=== PATIENT | female | born 1985 | race Caucasian/White ===

== ENCOUNTER 2016-07-20 14:19 | Emergency (ER) | payer BC ==
[~2016-07-20] VITALS: Ht 162.6 cm; Wt 101.4 kg
[~2016-07-20 14:19] MED LIST: FLEXERIL 1010 MG/TAB PO; IBU800 M1 PO; INDERAL60 MG PO; LEXAPRO 10MG10 MG PO; LOPRESSOR100 MG PO; MOBIC 7.5MG7.5 MG PO; MOTRIN 600600 MG/TAB PO; NITROSTAT0.4 MG/TAB SL; NORCO 325 MG-51 TAB PO; ULTRAM 50MG TAB50 MG PO
[2016-07-20 14:21] VITALS: BP 126/97; TEMP 99.1
[2016-07-20] MEDS ORDERED: NORCO 325 MG-51 TAB PO (15:40)
[2016-07-20 15:57] VITALS: PULSE 86
== END 2016-07-20 15:57 | disposition home or self-care (01) ==
LOC: COL.ER 14:19
DX: S93.402A Sprain of unspecified ligament of left ankle, initial encounter (principal); X50.1XXA Overexertion from prolonged static or awkward postures, initial encounter
CPT/HCPCS: J1170; J2405; J2550

== ENCOUNTER → 2016-09-16 | Outpatient (REF) ==
[~2016-09-16] MED LIST changes: +ASPIRIN 81M81 MG/TA2 PO; +BELSOMRA15 MG PO; +CARAFATE 1GM1 G PO; +DIFLUCAN150 MG PO; +EFFEXOR 75M75 MG/TAB PO; +MACROBID 1100 MG/CAP PO; +NITROSTAT0.3 MG SL; +PROTONIX 40MG T40 MG PO; +TOPAMAX50 MG PO; +VOLTAREN 75 DR75 MG PO
== END ==
LOC: WSOH 11:38
DX: Z02.1 Encounter for pre-employment examination (principal)

== ENCOUNTER → 2016-09-19 | Outpatient (REF) | LOC: WSOH 14:57 | DX: Z02.1 Encounter for pre-employment examination (principal) ==

== ENCOUNTER → 2016-09-22 | Outpatient (REF) | LOC: WSOH 15:01 | DX: Z23 Encounter for immunization (principal) ==

== ENCOUNTER → 2016-09-26 | Outpatient (REF) | LOC: WSOH 15:36 | DX: Z02.89 Encounter for other administrative examinations (principal) ==

== ENCOUNTER 2016-10-12 08:47 | Emergency (ER) | payer BC ==
[~2016-10-12] VITALS: Ht 162.6 cm; Wt 101.8 kg
[~2016-10-12 08:47] MED LIST changes: -ASPIRIN 81M81 MG/TA2 PO; -BELSOMRA15 MG PO; -CARAFATE 1GM1 G PO; -DIFLUCAN150 MG PO; -EFFEXOR 75M75 MG/TAB PO; -MACROBID 1100 MG/CAP PO; -NITROSTAT0.3 MG SL; -PROTONIX 40MG T40 MG PO; -TOPAMAX50 MG PO; -VOLTAREN 75 DR75 MG PO
[2016-10-12 08:49] VITALS: BP 138/86; TEMP 97.6
[2016-10-12] MEDS ORDERED: BELSOMRA15 MG PO (09:11)
[2016-10-12] MEDS ORDERED: INDERAL60 MG PO (09:11)
[2016-10-12 09:35] LABS: BASO % 0.6 % (0.0-2.0); EOS # 0.1 (0.0-0.7); EOS % 1.5 % (0-4.0); GRAN # 2.6 (1.4-6.5); GRAN % 50.8 % (42.2-75.2); HEMATOCRIT 37.2 % (37.0-47.0); HEMOGLOBIN 12.8 g/dl (12.5-16.0); LYMPH # 2.1 (1.2-3.4); LYMPH % 40.9 % (20.0-51.0); MEAN CELL VOLUME 87 fl (80.0-100.0); MEAN CORPUSCULAR HEMOGLOBIN 30 pg (27.0-31.0); MEAN CORPUSCULAR HGB CONC 34 g/dl (33.0-37.0); MEAN PLATELET VOLUME 9.2 fl (7.4-10.4); MONO # 0.3 (0.1-0.6); PLATELET COUNT 401 K/mm3 (130-400); RED BLOOD COUNT 4.29 M/mm3 (4.10-5.30); REDCELL DISTRIBUTION WIDTH-CV 12.5 % (11.5-14.5); WHITE BLOOD COUNT 5.2 K/mm3 (4.8-10.8)
[2016-10-12 09:37] LABS: PH 5 (5-8); URINE APPEARANCE Hazy; URINE BACTERIA Rare /hpf; URINE BILIRUBIN Negative (NEGATIVE); URINE BLOOD 1+ (NEGATIVE); URINE COLOR Yellow; URINE GLUCOSE Negative (NEGATIVE); URINE KETONE Negative (NEGATIVE); URINE UROBILINOGEN Negative (NEGATIVE)
[2016-10-12 09:41] LABS: ADJUSTED CALCIUM 8.9 mg/dL (8.4-10.2); ALBUMIN 4.1 gm/dL (3.5-5.0); BILIRUBIN,TOTAL 0.7 mg/dL (0.0-1.0); C-REACTIVE PROTEIN 0.8 mg/dL (0.0-0.9); CREATININE, serum 0.72 mg/dL (0.52-1.25); POTASSIUM 3.8 mmol/L (3.4-5.0); TOTAL PROTEIN 8.1 gm/dL (6.4-8.2)
[2016-10-12] MEDS ORDERED: MACROBID 1100 MG/CAP PO (10:48)
[2016-10-12] MEDS ORDERED: DIFLUCAN150 MG PO (11:21)
[2016-10-12 11:29] VITALS: PULSE 84
== END 2016-10-12 11:31 | disposition home or self-care (01) ==
LOC: COL.ER 08:47
PROVIDERS: Physician Assistant
DX: R10.31 Right lower quadrant pain (principal); N39.0 Urinary tract infection, site not specified; R19.7 Diarrhea, unspecified
CPT/HCPCS: J1170; J2550; J7030; Q9967

== ENCOUNTER 2016-10-17 14:04 | Emergency (ER) | payer BC ==
[~2016-10-17] VITALS: Ht 162.6 cm; Wt 101.8 kg
[~2016-10-17 14:04] MED LIST changes: +BELSOMRA15 MG PO; +DIFLUCAN150 MG PO; +MACROBID 1100 MG/CAP PO
[2016-10-17 14:05] VITALS: TEMP 98.9
[2016-10-17 14:39] LABS: BASO % 0.8 % (0.0-2.0); EOS # 0.1 (0.0-0.7); GRAN # 2.6 (1.4-6.5); GRAN % 49.6 % (42.2-75.2); HEMOGLOBIN 13.1 g/dl (12.5-16.0); LYMPH # 2.3 (1.2-3.4); LYMPH % 44.4 % (20.0-51.0); MEAN CELL VOLUME 87 fl (80.0-100.0); MEAN CORPUSCULAR HEMOGLOBIN 30 pg (27.0-31.0); MEAN CORPUSCULAR HGB CONC 35 g/dl (33.0-37.0); MEAN PLATELET VOLUME 9.2 fl (7.4-10.4); MONO # 0.2 (0.1-0.6); PLATELET COUNT 387 K/mm3 (130-400); RED BLOOD COUNT 4.35 M/mm3 (4.10-5.30); REDCELL DISTRIBUTION WIDTH-CV 12.7 % (11.5-14.5); WHITE BLOOD COUNT 5.2 K/mm3 (4.8-10.8)
[2016-10-17 14:56] LABS: ADJUSTED CALCIUM 8.8 mg/dL (8.4-10.2); ALANINE AMINOTRANSFERASE 23 U/L (9-52); ALBUMIN 4.6 gm/dL (3.5-5.0); ALKALINE PHOSPHATASE 93 U/L (50-136); ANION GAP 10 mmol/L (7-16); BILIRUBIN,TOTAL 0.8 mg/dL (0.0-1.0); BLOOD UREA NITROGEN 8 mg/dL (7-17); CALCIUM 9.3 mg/dL (8.4-10.2); CARBON DIOXIDE 25 mmol/L (22-30); CHLORIDE 103 mmol/L (98-107); CREATININE, serum 0.76 mg/dL (0.52-1.25); GLUCOSE 89 mg/dL (74-106); POTASSIUM 3.8 mmol/L (3.4-5.0); SODIUM 137 mmol/L (137-145); TOTAL PROTEIN 8.5 gm/dL (6.4-8.2)
[2016-10-17 15:09] LABS: TROPONIN-I < 0.012 ng/mL (0.000-0.034)
[2016-10-17 15:12] LABS: PROLACTIN 28.5 ng/mL (3.0-18.6)
[2016-10-17 16:12] LABS: PH 5 (5-8); URINE APPEARANCE Hazy; URINE BACTERIA Rare /hpf; URINE BILIRUBIN Negative (NEGATIVE); URINE BLOOD Negative (NEGATIVE); URINE COLOR Yellow; URINE GLUCOSE Negative (NEGATIVE); URINE KETONE Negative (NEGATIVE); URINE UROBILINOGEN Negative (NEGATIVE); URINE WBC 0-2 /hpf
[2016-10-17 17:14] VITALS: BP 115/78; PULSE 88
== END 2016-10-17 16:40 | disposition home or self-care (01) ==
LOC: COL.ER 14:04
PROVIDERS: Physician Assistant
DX: R07.9 Chest pain, unspecified (principal); F41.9 Anxiety disorder, unspecified; R79.89 Other specified abnormal findings of blood chemistry; I10 Essential (primary) hypertension; N39.0 Urinary tract infection, site not specified
CPT/HCPCS: J2060

== ENCOUNTER 2016-12-02 07:58 | Emergency (ER) | payer BC ==
[~2016-12-02] VITALS: Ht 162.6 cm; Wt 101.4 kg
[2016-12-02 08:00] VITALS: TEMP 98.2
[2016-12-02] MEDS ORDERED: EFFEXOR 75M75 MG/TAB PO (08:06)
[2016-12-02] MEDS ORDERED: NORCO 325 MG-51 TAB PO (08:42)
[2016-12-02 09:31] VITALS: BP 107/70; PULSE 83
== END 2016-12-02 09:34 | disposition home or self-care (01) ==
LOC: COL.ER 07:58
DX: F41.9 Anxiety disorder, unspecified (principal); T43.215A Adverse effect of selective serotonin and norepinephrine reuptake inhibitors, initial encounter

== ENCOUNTER 2016-12-18 14:23 | Outpatient (RCR) | payer OTHER ==
[~2016-12-18 14:23] MED LIST changes: +EFFEXOR 75M75 MG/TAB PO
[2017-01-11] MEDS ORDERED: TOPAMAX50 MG PO (01:14)
[2017-02-06] MEDS ORDERED: NITROSTAT0.3 MG SL (20:20)
[2017-02-06] MEDS ORDERED: VOLTAREN 75 DR75 MG PO (22:02)
== END 2017-03-04 ==
LOC: WSOH
DX: S00.93XA Contusion of unspecified part of head, initial encounter (principal); M54.5 Low back pain; W08.XXXA Fall from other furniture, initial encounter; Y99.0 Civilian activity done for income or pay

== ENCOUNTER 2017-01-10 23:48 | Emergency (ER) | payer OTHER ==
[~2017-01-10] VITALS: Ht 162.6 cm; Wt 100.9 kg
[2017-01-10 23:50] VITALS: TEMP 97.8
[2017-01-11 00:25] LABS: BASO % 0.4 % (0.0-2.0); EOS # 0.1 (0.0-0.7); EOS % 1.3 % (0-4.0); GRAN # 2.6 (1.4-6.5); GRAN % 47.4 % (42.2-75.2); HEMATOCRIT 36.1 % (37.0-47.0); HEMOGLOBIN 12.2 g/dl (12.5-16.0); LYMPH # 2.5 (1.2-3.4); LYMPH % 45.4 % (20.0-51.0); MEAN CELL VOLUME 88 fl (80.0-100.0); MEAN CORPUSCULAR HEMOGLOBIN 30 pg (27.0-31.0); MEAN CORPUSCULAR HGB CONC 34 g/dl (33.0-37.0); MEAN PLATELET VOLUME 8.7 fl (7.4-10.4); MONO # 0.3 (0.1-0.6); MONO % 5.3 % (1.7-9.3); PLATELET COUNT 334 K/mm3 (130-400); RED BLOOD COUNT 4.12 M/mm3 (4.10-5.30); REDCELL DISTRIBUTION WIDTH-CV 12.4 % (11.5-14.5); WHITE BLOOD COUNT 5.5 K/mm3 (4.8-10.8)
[2017-01-11 00:40] LABS: ADJUSTED CALCIUM 8.8 mg/dL (8.4-10.2); ALANINE AMINOTRANSFERASE 19 U/L (9-52); ALKALINE PHOSPHATASE 79 U/L (50-136); ANION GAP 10 mmol/L (7-16); BILIRUBIN,TOTAL 0.5 mg/dL (0.0-1.0); BLOOD UREA NITROGEN 13 mg/dL (7-17); CALCIUM 8.8 mg/dL (8.4-10.2); CARBON DIOXIDE 25 mmol/L (22-30); CHLORIDE 104 mmol/L (98-107); CREATININE, serum 0.76 mg/dL (0.52-1.25); GLUCOSE 91 mg/dL (74-106); POTASSIUM 3.9 mmol/L (3.4-5.0); SODIUM 139 mmol/L (137-145); TOTAL PROTEIN 7.6 gm/dL (6.4-8.2)
[2017-01-11 00:53] LABS: TROPONIN-I < 0.012 ng/mL (0.000-0.034)
[2017-01-11] MEDS ORDERED: TOPAMAX50 MG PO (01:14)
[2017-01-11 01:24] VITALS: BP 113/71; PULSE 81
== END 2017-01-11 01:24 | disposition home or self-care (01) ==
LOC: COL.ER 23:48
PROVIDERS: Family Medicine
DX: G40.909 Epilepsy, unspecified, not intractable, without status epilepticus (principal); S63.502A Unspecified sprain of left wrist, initial encounter; W19.XXXA Unspecified fall, initial encounter; T50.996A Underdosing of other drugs, medicaments and biological substances, initial encounter; Z91.128 Patient's intentional underdosing of medication regimen for other reason; R55 Syncope and collapse; R07.9 Chest pain, unspecified

== ENCOUNTER 2017-02-06 20:14 | Emergency (ER) | payer OTHER ==
[~2017-02-06] VITALS: Ht 162.6 cm; Wt 98.2 kg
[~2017-02-06 20:14] MED LIST changes: +TOPAMAX50 MG PO
[2017-02-06 20:16] VITALS: TEMP 99.4
[2017-02-06] MEDS ORDERED: NITROSTAT0.3 MG SL (20:20)
[2017-02-06 21:03] LABS: BASO % 0.3 % (0.0-2.0); EOS # 0.1 (0.0-0.7); EOS % 0.8 % (0-4.0); GRAN # 3.4 (1.4-6.5); GRAN % 53.9 % (42.2-75.2); HEMOGLOBIN 12.3 g/dl (12.5-16.0); LYMPH # 2.4 (1.2-3.4); LYMPH % 38.6 % (20.0-51.0); MEAN CELL VOLUME 86 fl (80.0-100.0); MEAN CORPUSCULAR HEMOGLOBIN 30 pg (27.0-31.0); MEAN CORPUSCULAR HGB CONC 35 g/dl (33.0-37.0); MEAN PLATELET VOLUME 8.9 fl (7.4-10.4); MONO # 0.4 (0.1-0.6); MONO % 6.1 % (1.7-9.3); PLATELET COUNT 355 K/mm3 (130-400); REDCELL DISTRIBUTION WIDTH-CV 12.3 % (11.5-14.5); WHITE BLOOD COUNT 6.3 K/mm3 (4.8-10.8)
[2017-02-06 21:05] LABS: HEMATOCRIT 35.1 % (37.0-47.0)
[2017-02-06 21:15] LABS: ADJUSTED CALCIUM 8.7 mg/dL (8.4-10.2); ALANINE AMINOTRANSFERASE 25 U/L (9-52); ALBUMIN 4.5 gm/dL (3.5-5.0); ALKALINE PHOSPHATASE 100 U/L (50-136); ANION GAP 11 mmol/L (7-16); BILIRUBIN,TOTAL 0.7 mg/dL (0.0-1.0); BLOOD UREA NITROGEN 9 mg/dL (7-17); CALCIUM 9.1 mg/dL (8.4-10.2); CARBON DIOXIDE 23 mmol/L (22-30); CHLORIDE 103 mmol/L (98-107); CREATININE, serum 0.72 mg/dL (0.52-1.25); GLUCOSE 92 mg/dL (74-106); POTASSIUM 3.5 mmol/L (3.4-5.0); SODIUM 137 mmol/L (137-145); TOTAL PROTEIN 8.3 gm/dL (6.4-8.2)
[2017-02-06 21:34] LABS: TROPONIN-I < 0.012 ng/mL (0.000-0.034)
[2017-02-06] MEDS ORDERED: VOLTAREN 75 DR75 MG PO (22:02)
[2017-02-06 22:10] LABS: INR 1.1 (0.8-3.0); PROTHROMBIN TIME 12.3 SECONDS (9.7-12.8)
[2017-02-06 22:23] LABS: PROLACTIN 33.1 ng/mL (3.0-18.6)
[2017-02-06 22:33] VITALS: BP 111/74; PULSE 99
== END 2017-02-06 22:40 | disposition home or self-care (01) ==
LOC: COL.ER 20:14
PROVIDERS: Emergency Medicine
DX: R55 Syncope and collapse (principal); R07.9 Chest pain, unspecified; R42 Dizziness and giddiness
CPT/HCPCS: J1885; J2765; J3010; J7030

== ENCOUNTER 2017-03-31 09:30 | Emergency (ER) | payer OTHER ==
[~2017-03-31] VITALS: Ht 162.6 cm; Wt 102.0 kg
[~2017-03-31 09:30] MED LIST changes: +NITROSTAT0.3 MG SL; +VOLTAREN 75 DR75 MG PO
[2017-03-31 09:34] VITALS: TEMP 97.9
[2017-03-31] MEDS ORDERED: ASPIRIN 81M81 MG/TA2 PO (09:52)
[2017-03-31 10:39] LABS: BASO % 0.2 % (0.0-2.0); EOS # 0.1 (0.0-0.7); EOS % 1.5 % (0-4.0); GRAN % 49.5 % (42.2-75.2); HEMOGLOBIN 12.1 g/dl (12.5-16.0); LYMPH # 1.8 (1.2-3.4); LYMPH % 43.2 % (20.0-51.0); MEAN CELL VOLUME 88 fl (80.0-100.0); MEAN CORPUSCULAR HEMOGLOBIN 30 pg (27.0-31.0); MEAN CORPUSCULAR HGB CONC 35 g/dl (33.0-37.0); MEAN PLATELET VOLUME 8.7 fl (7.4-10.4); MONO # 0.2 (0.1-0.6); MONO % 5.4 % (1.7-9.3); PLATELET COUNT 326 K/mm3 (130-400); RED BLOOD COUNT 4.01 M/mm3 (4.10-5.30); REDCELL DISTRIBUTION WIDTH-CV 12.7 % (11.5-14.5); WHITE BLOOD COUNT 4.1 K/mm3 (4.8-10.8)
[2017-03-31 10:48] LABS: ADJUSTED CALCIUM 8.9 mg/dL (8.4-10.2); ALANINE AMINOTRANSFERASE 30 U/L (9-52); ALBUMIN 3.9 gm/dL (3.5-5.0); ALKALINE PHOSPHATASE 86 U/L (50-136); ANION GAP 9 mmol/L (7-16); BILIRUBIN,TOTAL 0.7 mg/dL (0.0-1.0); BLOOD UREA NITROGEN 8 mg/dL (7-17); CALCIUM 8.8 mg/dL (8.4-10.2); CARBON DIOXIDE 25 mmol/L (22-30); CHLORIDE 105 mmol/L (98-107); CREATININE, serum 0.64 mg/dL (0.52-1.25); GLUCOSE 89 mg/dL (74-106); LIPASE 35 U/L (23-300); POTASSIUM 3.5 mmol/L (3.4-5.0); SODIUM 139 mmol/L (137-145); TOTAL PROTEIN 7.5 gm/dL (6.4-8.2)
[2017-03-31 10:56] LABS: HEMATOCRIT 35.1 % (37.0-47.0)
[2017-03-31 11:01] LABS: TROPONIN-I < 0.012 ng/mL (0.000-0.034)
[2017-03-31] MEDS ORDERED: PROTONIX 40MG T40 MG PO (12:18)
[2017-03-31] MEDS ORDERED: CARAFATE 1GM1 G PO (12:18)
[2017-03-31 12:34] VITALS: BP 111/74; PULSE 99
== END 2017-03-31 12:35 | disposition home or self-care (01) ==
LOC: COL.ER 09:30
PROVIDERS: Emergency Medicine
DX: R10.13 Epigastric pain (principal); F41.9 Anxiety disorder, unspecified; R10.12 Left upper quadrant pain; Z79.82 Long term (current) use of aspirin
CPT/HCPCS: J1885; J2060; J7030

== ENCOUNTER 2017-05-30 05:07 | Emergency (ER) | payer OTHER ==
[~2017-05-30] VITALS: Ht 162.6 cm; Wt 100.0 kg
[~2017-05-30 05:07] MED LIST changes: +ASPIRIN 81M81 MG/TA2 PO; +CARAFATE 1GM1 G PO; +PROTONIX 40MG T40 MG PO
[2017-05-30 05:11] VITALS: TEMP 98.1
[2017-05-30 06:09] LABS: ALANINE AMINOTRANSFERASE 20 U/L (9-52); ALBUMIN 4.1 gm/dL (3.5-5.0); ALKALINE PHOSPHATASE 88 U/L (50-136); ANION GAP 10 mmol/L (7-16); BILIRUBIN,TOTAL 0.5 mg/dL (0.0-1.0); BLOOD UREA NITROGEN 6 mg/dL (7-17); CALCIUM 9.1 mg/dL (8.4-10.2); CARBON DIOXIDE 18 mmol/L (22-30); CHLORIDE 108 mmol/L (98-107); CREATININE, serum 0.59 mg/dL (0.52-1.25); GLUCOSE 109 mg/dL (74-106); POTASSIUM 4.2 mmol/L (3.4-5.0); SODIUM 136 mmol/L (137-145); TOTAL PROTEIN 7.4 gm/dL (6.4-8.2)
[2017-05-30 06:20] LABS: B-TYPE NATRIURETIC PEPTIDE 78 pg/mL (0-125)
[2017-05-30 06:21] LABS: TROPONIN-I < 0.012 ng/mL (0.000-0.034)
[2017-05-30 06:27] LABS: BASO % 0.7 % (0.0-2.0); EOS % 0.5 % (0-4.0); GRAN # 3.5 (1.4-6.5); GRAN % 60.4 % (42.2-75.2); HEMATOCRIT 34.7 % (37.0-47.0); HEMOGLOBIN 12.1 g/dl (12.5-16.0); LYMPH # 1.9 (1.2-3.4); LYMPH % 32.5 % (20.0-51.0); MEAN CELL VOLUME 87 fl (80.0-100.0); MEAN CORPUSCULAR HEMOGLOBIN 30 pg (27.0-31.0); MEAN CORPUSCULAR HGB CONC 35 g/dl (33.0-37.0); MEAN PLATELET VOLUME 9.1 fl (7.4-10.4); MONO # 0.3 (0.1-0.6); MONO % 5.6 % (1.7-9.3); PLATELET COUNT 343 K/mm3 (130-400); WHITE BLOOD COUNT 5.9 K/mm3 (4.8-10.8)
[2017-05-30] MEDS ORDERED: TOPAMAX 25MG25 M1 PO (07:42)
[2017-05-30] MEDS ORDERED: ATIVAN 0.50.5 MG/TAB PO (07:42)
[2017-05-30 07:55] VITALS: BP 110/70; PULSE 77
== END 2017-05-30 08:00 | disposition other institution (70) ==
LOC: COL.ER 05:07
PROVIDERS: Emergency Medicine
DX: R07.89 Other chest pain (principal); R55 Syncope and collapse; M54.9 Dorsalgia, unspecified; F41.9 Anxiety disorder, unspecified; Z32.02 Encounter for pregnancy test, result negative; Z79.82 Long term (current) use of aspirin
CPT/HCPCS: J2060; J3010; J7030

== ENCOUNTER 2017-07-22 13:10 | Emergency (ER) | payer OTHER ==
[~2017-07-22] VITALS: Ht 162.6 cm; Wt 98.2 kg
[~2017-07-22 13:10] MED LIST changes: +ATIVAN 0.50.5 MG/TAB PO; +TOPAMAX 25MG25 M1 PO
[2017-07-22 13:17] VITALS: BP 109/76; TEMP 98.1
[2017-07-22 17:20] LABS: BASO % 0.4 % (0.0-2.0); EOS # 0.1 (0.0-0.7); EOS % 0.7 % (0-4.0); GRAN % 57.5 % (42.2-75.2); HEMATOCRIT 40.1 % (37.0-47.0); HEMOGLOBIN 13.8 g/dl (12.5-16.0); LYMPH # 2.5 (1.2-3.4); LYMPH % 35.7 % (20.0-51.0); MEAN CELL VOLUME 88 fl (80.0-100.0); MEAN CORPUSCULAR HEMOGLOBIN 30 pg (27.0-31.0); MEAN CORPUSCULAR HGB CONC 34 g/dl (33.0-37.0); MEAN PLATELET VOLUME 8.9 fl (7.4-10.4); MONO # 0.4 (0.1-0.6); MONO % 5.6 % (1.7-9.3); PLATELET COUNT 396 K/mm3 (130-400); RED BLOOD COUNT 4.56 M/mm3 (4.10-5.30); REDCELL DISTRIBUTION WIDTH-CV 12.4 % (11.5-14.5)
[2017-07-22 17:31] LABS: ALBUMIN 4.7 gm/dL (3.5-5.0); BILIRUBIN,TOTAL 0.4 mg/dL (0.0-1.0); C-REACTIVE PROTEIN 0.9 mg/dL (0.0-0.9); CALCIUM 9.4 mg/dL (8.4-10.2); CREATININE, serum 0.73 mg/dL (0.52-1.25); POTASSIUM 4.2 mmol/L (3.4-5.0); TOTAL PROTEIN 8.6 gm/dL (6.4-8.2)
[2017-07-22] MEDS ORDERED: PROTONIX 40MG T40 MG PO (20:22)
[2017-07-22] MEDS ORDERED: NORCO 325 MG-51 TAB PO (20:22)
[2017-07-22 20:34] VITALS: PULSE 80
== END 2017-07-22 20:36 | disposition home or self-care (01) ==
LOC: COL.ER 13:10
PROVIDERS: Emergency Medicine
DX: R10.12 Left upper quadrant pain (principal); F41.9 Anxiety disorder, unspecified; Z90.49 Acquired absence of other specified parts of digestive tract; Z79.82 Long term (current) use of aspirin
CPT/HCPCS: J1885; J2060; J2405; J3010; J7030; J7050; Q9967

== ENCOUNTER 2017-08-08 04:08 | Emergency (ER) | payer OTHER ==
[~2017-08-08] VITALS: Ht 162.6 cm; Wt 100.9 kg
[2017-08-08] MEDS ORDERED: BUSPAR10 MG PO (04:34)
[2017-08-08 04:48] LABS: BASO % 0.6 % (0.0-2.0); EOS # 0.1 (0.0-0.7); EOS % 1.7 % (0-4.0); GRAN # 2.8 (1.4-6.5); GRAN % 51.6 % (42.2-75.2); HEMOGLOBIN 12.2 g/dl (12.5-16.0); LYMPH % 38.1 % (20.0-51.0); MEAN CELL VOLUME 90 fl (80.0-100.0); MEAN CORPUSCULAR HEMOGLOBIN 30 pg (27.0-31.0); MEAN CORPUSCULAR HGB CONC 34 g/dl (33.0-37.0); MONO # 0.4 (0.1-0.6); MONO % 7.8 % (1.7-9.3); PLATELET COUNT 285 K/mm3 (130-400); RED BLOOD COUNT 4.03 M/mm3 (4.10-5.30); REDCELL DISTRIBUTION WIDTH-CV 12.6 % (11.5-14.5)
[2017-08-08 04:49] LABS: HEMATOCRIT 36.3 % (37.0-47.0)
[2017-08-08 04:58] LABS: ALBUMIN 3.9 gm/dL (3.5-5.0); BILIRUBIN,TOTAL 0.4 mg/dL (0.0-1.0); CALCIUM 8.6 mg/dL (8.4-10.2); CREATININE, serum 0.67 mg/dL (0.52-1.25); POTASSIUM 3.8 mmol/L (3.4-5.0); TOTAL PROTEIN 7.3 gm/dL (6.4-8.2)
[2017-08-08 05:56] VITALS: TEMP 96.9
[2017-08-08 06:13] LABS: COLLECTION METHOD CLEAN CATCH
[2017-08-08 06:19] LABS: MUCOUS Present /lpf; PH 6 (5-8); URINE APPEARANCE Hazy; URINE BACTERIA None Seen /hpf; URINE BILIRUBIN Negative (NEGATIVE); URINE BLOOD Negative (NEGATIVE); URINE COLOR Yellow; URINE GLUCOSE Negative (NEGATIVE); URINE KETONE Negative (NEGATIVE); URINE LEUKOCYTE ESTERASE Negative (NEGATIVE); URINE NITRATE Negative (NEGATIVE); URINE PROTEIN(semi-quant) Negative (NEGATIVE); URINE RBC 0-2 /hpf
[2017-08-08 07:00] VITALS: BP 101/73; PULSE 79
[2017-08-08] MEDS ORDERED: NORCO 325 MG-51 TAB PO (07:01)
[2017-08-08] MEDS ORDERED: PRIL40 PO (07:01)
[2017-08-08] MEDS ORDERED: MIRALAX 255 GM255 GM PO (07:01)
== END 2017-08-08 07:14 | disposition home or self-care (01) ==
LOC: COL.ER 04:08
PROVIDERS: Emergency Medicine
DX: R10.12 Left upper quadrant pain (principal); G40.909 Epilepsy, unspecified, not intractable, without status epilepticus; F41.9 Anxiety disorder, unspecified; Z90.49 Acquired absence of other specified parts of digestive tract; Z79.82 Long term (current) use of aspirin
CPT/HCPCS: J1630; J2270; J7030

== ENCOUNTER 2017-10-10 14:28 | Emergency (ER) | payer OTHER ==
[~2017-10-10] VITALS: Ht 162.6 cm; Wt 102.3 kg
[~2017-10-10 14:28] MED LIST changes: +BUSPAR10 MG PO; +MIRALAX 255 GM255 GM PO; +PRIL40 PO
[2017-10-10 14:32] VITALS: TEMP 97.2
[2017-10-10 15:12] LABS: BASO % 0.6 % (0.0-2.0); EOS # 0.1 (0.0-0.7); EOS % 1.1 % (0-4.0); GRAN # 3.7 (1.4-6.5); GRAN % 58.4 % (42.2-75.2); HEMOGLOBIN 12.3 g/dl (12.5-16.0); LYMPH # 2.2 (1.2-3.4); LYMPH % 35.1 % (20.0-51.0); MEAN CELL VOLUME 87 fl (80.0-100.0); MEAN CORPUSCULAR HEMOGLOBIN 31 pg (27.0-31.0); MEAN CORPUSCULAR HGB CONC 35 g/dl (33.0-37.0); MEAN PLATELET VOLUME 8.9 fl (7.4-10.4); MONO # 0.3 (0.1-0.6); MONO % 4.6 % (1.7-9.3); PLATELET COUNT 335 K/mm3 (130-400); RED BLOOD COUNT 4.03 M/mm3 (4.10-5.30); REDCELL DISTRIBUTION WIDTH-CV 11.9 % (11.5-14.5)
[2017-10-10 15:24] LABS: ALBUMIN 4.3 gm/dL (3.5-5.0); BILIRUBIN,TOTAL 0.3 mg/dL (0.0-1.0); C-REACTIVE PROTEIN 1.1 mg/dL (0.0-0.9); CALCIUM 8.9 mg/dL (8.4-10.2); CREATININE, serum 0.81 mg/dL (0.52-1.25); POTASSIUM 3.7 mmol/L (3.4-5.0); TOTAL PROTEIN 7.9 gm/dL (6.4-8.2)
[2017-10-10 15:36] LABS: COLLECTION METHOD CLEAN CATCH
[2017-10-10 15:42] LABS: MUCOUS Present /lpf; PH 5 (5-8); URINE APPEARANCE Clear; URINE BACTERIA Rare /hpf; URINE BILIRUBIN Negative (NEGATIVE); URINE BLOOD 1+ (NEGATIVE); URINE COLOR Yellow; URINE GLUCOSE Negative (NEGATIVE); URINE KETONE Negative (NEGATIVE); URINE LEUKOCYTE ESTERASE Negative (NEGATIVE); URINE NITRATE Negative (NEGATIVE); URINE PROTEIN(semi-quant) Negative (NEGATIVE); URINE RBC 0-2 /hpf; URINE UROBILINOGEN Negative (NEGATIVE)
[2017-10-10] MEDS ORDERED: PRILOSEC 20MG20 MG PO (15:42)
[2017-10-10] MEDS ORDERED: DESYREL 50MG50 MG PO (15:42)
[2017-10-10] MEDS ORDERED: BIAXIN 500MG T500 MG PO (15:57)
[2017-10-10] MEDS ORDERED: NORCO 325 MG-51 TAB PO (16:05)
[2017-10-10 16:12] VITALS: BP 116/89; PULSE 86
== END 2017-10-10 16:13 | disposition home or self-care (01) ==
LOC: COL.ER 14:28
PROVIDERS: Emergency Medicine
DX: R10.12 Left upper quadrant pain (principal); K58.9 Irritable bowel syndrome, unspecified; F41.9 Anxiety disorder, unspecified; G40.909 Epilepsy, unspecified, not intractable, without status epilepticus; Z90.49 Acquired absence of other specified parts of digestive tract
CPT/HCPCS: J1885; J2270; J2405; J7030

== ENCOUNTER 2018-01-14 18:47 | Emergency (ER) | payer OTHER ==
[~2018-01-14] VITALS: Ht 165.1 cm; Wt 103.6 kg
[~2018-01-14 18:47] MED LIST changes: +BIAXIN 500MG T500 MG PO; +DESYREL 50MG50 MG PO; +PRILOSEC 20MG20 MG PO
[2018-01-14 18:57] VITALS: TEMP 98.1
[2018-01-14 19:27] LABS: COLLECTION METHOD CLEAN CATCH
[2018-01-14 19:31] LABS: BASO % 0.3 % (0.0-2.0); EOS # 0.1 (0.0-0.7); HEMOGLOBIN 12.1 g/dl (12.5-16.0); LYMPH # 2.7 (1.2-3.4); MEAN CELL VOLUME 87 fl (80.0-100.0); MEAN CORPUSCULAR HEMOGLOBIN 30 pg (27.0-31.0); MEAN CORPUSCULAR HGB CONC 34 g/dl (33.0-37.0); MEAN PLATELET VOLUME 8.9 fl (7.4-10.4); MONO # 0.3 (0.1-0.6); MONO % 5.5 % (1.7-9.3); PLATELET COUNT 359 K/mm3 (130-400); RED BLOOD COUNT 4.09 M/mm3 (4.10-5.30); REDCELL DISTRIBUTION WIDTH-CV 12.2 % (11.5-14.5)
[2018-01-14 19:32] LABS: HEMATOCRIT 35.6 % (37.0-47.0)
[2018-01-14 19:36] LABS: MUCOUS Present /lpf; PH 5 (5-8); SQUAMOUS EPITHELIAL 20-50 /hpf; URINE APPEARANCE Cloudy; URINE BACTERIA Rare /hpf; URINE BILIRUBIN Negative (NEGATIVE); URINE BLOOD 1+ (NEGATIVE); URINE COLOR Yellow; URINE GLUCOSE Negative (NEGATIVE); URINE KETONE Negative (NEGATIVE); URINE LEUKOCYTE ESTERASE 3+ (NEGATIVE); URINE NITRATE Negative (NEGATIVE); URINE PROTEIN(semi-quant) Negative (NEGATIVE); URINE UROBILINOGEN Negative (NEGATIVE)
[2018-01-14 19:43] LABS: ALBUMIN 4.2 gm/dL (3.5-5.0); BILIRUBIN,TOTAL 0.5 mg/dL (0.0-1.0); C-REACTIVE PROTEIN 1.2 mg/dL (0.0-0.9); CALCIUM 8.9 mg/dL (8.4-10.2); CREATININE, serum 0.62 mg/dL (0.52-1.25); POTASSIUM 3.4 mmol/L (3.4-5.0)
[2018-01-14] MEDS ORDERED: LINZESS72 MCG PO (20:19)
[2018-01-14] MEDS ORDERED: PERCOCET 325 MG1 TA2 PO (21:06)
[2018-01-14] MEDS ORDERED: DIFLUCAN200 MG PO (21:06)
[2018-01-14] MEDS ORDERED: CEFTIN 250250 MG/TAB PO (21:06)
[2018-01-14 21:17] VITALS: BP 114/80; PULSE 88
== END 2018-01-14 21:20 | disposition home or self-care (01) ==
LOC: COL.ER 18:47
PROVIDERS: Emergency Medicine
DX: N39.0 Urinary tract infection, site not specified (principal); Z90.49 Acquired absence of other specified parts of digestive tract; Z98.890 Other specified postprocedural states
CPT/HCPCS: J1885; J2060; J3010; J7030; Q9967

== ENCOUNTER 2018-04-05 05:52 | Emergency (ER) | payer OTHER ==
[~2018-04-05] VITALS: Ht 165.1 cm; Wt 96.8 kg
[~2018-04-05 05:52] MED LIST changes: +CEFTIN 250250 MG/TAB PO; +DIFLUCAN200 MG PO; +LINZESS72 MCG PO; +PERCOCET 325 MG1 TA2 PO
[2018-04-05 05:57] VITALS: TEMP 98.1
[2018-04-05 06:09] VITALS: BP 131/89
[2018-04-05] MEDS ORDERED: PERCOCET 325 MG1 TA2 PO (06:43)
[2018-04-05 06:48] VITALS: PULSE 91
== END 2018-04-05 06:49 | disposition home or self-care (01) ==
LOC: COL.ER 05:52
DX: S63.302A Traumatic rupture of unspecified ligament of left wrist, initial encounter (principal); W19.XXXA Unspecified fall, initial encounter; Y92.009 Unspecified place in unspecified non-institutional (private) residence as the place of occurrence of the external cause

== ENCOUNTER 2018-06-13 22:01 | Emergency (ER) | payer OTHER ==
[~2018-06-13] VITALS: Ht 162.6 cm; Wt 101.4 kg
[~2018-06-13 22:01] MED LIST changes: +INDERAL 20MG20 MG PO; +PYRIDIUM200 M1 PO
[2018-06-13 22:06] VITALS: BP 117/77
[2018-06-13] MEDS ORDERED: DESYREL 50MG50 MG PO (22:19)
[2018-06-13 23:04] VITALS: PULSE 105; TEMP 97.3
== END 2018-06-13 23:04 | disposition home or self-care (01) ==
LOC: COL.ER 22:01
DX: S93.401A Sprain of unspecified ligament of right ankle, initial encounter (principal); S93.601A Unspecified sprain of right foot, initial encounter; F41.9 Anxiety disorder, unspecified; K58.9 Irritable bowel syndrome, unspecified; X50.0XXA Overexertion from strenuous movement or load, initial encounter

== ENCOUNTER 2018-08-18 13:42 | Emergency (ER) | payer OTHER ==
[~2018-08-18] VITALS: Ht 292.1 cm; Wt 100.0 kg
[2018-08-18 13:50] VITALS: BP 141/83; TEMP 97.9
[2018-08-18] MEDS ORDERED: ZOFRAN 4MG T4 MG/TAB PO (16:22)
[2018-08-18 17:05] VITALS: PULSE 89
== END 2018-08-18 17:09 | disposition home or self-care (01) ==
LOC: COL.ER 13:42
DX: S06.0X0A Concussion without loss of consciousness, initial encounter (principal); S30.0XXA Contusion of lower back and pelvis, initial encounter; F41.9 Anxiety disorder, unspecified; W00.0XXA Fall on same level due to ice and snow, initial encounter; W22.8XXA Striking against or struck by other objects, initial encounter; Y99.0 Civilian activity done for income or pay

== ENCOUNTER 2018-09-01 06:19 | Emergency (ER) | payer OTHER ==
[~2018-09-01] VITALS: Ht 165.1 cm; Wt 100.0 kg
[~2018-09-01 06:19] MED LIST changes: +ZOFRAN 4MG T4 MG/TAB PO
[2018-09-01 06:27] VITALS: TEMP 97.9
[2018-09-01 07:02] LABS: COLLECTION METHOD CLEAN CATCH
[2018-09-01 07:09] LABS: MUCOUS Present /lpf; PH 5 (5-8); URINE APPEARANCE Clear; URINE BACTERIA None Seen /hpf; URINE BILIRUBIN Negative (NEGATIVE); URINE BLOOD 3+ (NEGATIVE); URINE COLOR Yellow; URINE GLUCOSE Negative (NEGATIVE); URINE KETONE Negative (NEGATIVE); URINE LEUKOCYTE ESTERASE Negative (NEGATIVE); URINE NITRATE Negative (NEGATIVE); URINE PROTEIN(semi-quant) Negative (NEGATIVE); URINE UROBILINOGEN Negative (NEGATIVE)
[2018-09-01 08:44] LABS: BASO % 0.7 % (0.0-2.0); EOS # 0.1 (0.0-0.7); EOS % 1.2 % (0-4.0); GRAN # 2.1 (1.4-6.5); HEMATOCRIT 37.3 % (37.0-47.0); HEMOGLOBIN 12.8 g/dl (12.5-16.0); LYMPH # 1.8 (1.2-3.4); MEAN CELL VOLUME 88 fl (80.0-100.0); MEAN CORPUSCULAR HEMOGLOBIN 30 pg (27.0-31.0); MEAN CORPUSCULAR HGB CONC 34 g/dl (33.0-37.0); MEAN PLATELET VOLUME 8.5 fl (7.4-10.4); MONO # 0.2 (0.1-0.6); MONO % 5.6 % (1.7-9.3); PLATELET COUNT 375 K/mm3 (130-400); RED BLOOD COUNT 4.23 M/mm3 (4.10-5.30); REDCELL DISTRIBUTION WIDTH-CV 12.2 % (11.5-14.5)
[2018-09-01 08:58] LABS: C-REACTIVE PROTEIN 0.9 mg/dL (0.0-0.9); CALCIUM 8.7 mg/dL (8.4-10.2); CREATININE, serum 0.57 mg/dL (0.52-1.25); POTASSIUM 3.8 mmol/L (3.4-5.0)
[2018-09-01 09:26] LABS: TSH w REFLEX 1.95 uIU/mL (0.465-4.680)
[2018-09-01 09:40] VITALS: BP 107/72; PULSE 77
== END 2018-09-01 09:41 | disposition home or self-care (01) ==
LOC: COL.ER 06:19
PROVIDERS: Emergency Medicine
DX: N94.6 Dysmenorrhea, unspecified (principal)
CPT/HCPCS: J1885

== ENCOUNTER 2018-11-10 13:55 | Outpatient (RCR) | payer OTHER | END 2018-11-22 | disposition home or self-care (01) | LOC: WSOH | DX: F07.81 Postconcussional syndrome (principal); M54.5 Low back pain; W01.198A Fall on same level from slipping, tripping and stumbling with subsequent striking against other object, initial encounter; Y93.01 Activity, walking, marching and hiking; Y92.812 Truck as the place of occurrence of the external cause; Y99.0 Civilian activity done for income or pay; Z79.899 Other long term (current) drug therapy ==

== ENCOUNTER 2019-08-06 06:04 | Emergency (ER) | payer OTHER ==
[~2019-08-06] VITALS: Ht 165.1 cm; Wt 109.1 kg
[2019-08-06 06:09] VITALS: BP 137/82
[2019-08-06] MEDS ORDERED: TAMIFLU 75MG75 MG PO (07:09)
[2019-08-06 07:57] VITALS: PULSE 113; TEMP 98.1
== END 2019-08-06 07:57 | disposition home or self-care (01) ==
LOC: COL.ER 06:04
DX: J09.X2 Influenza due to identified novel influenza A virus with other respiratory manifestations (principal); Z90.89 Acquired absence of other organs

== ENCOUNTER 2019-12-23 06:07 | Emergency (ER) | payer OTHER ==
[~2019-12-23] VITALS: Ht 165.1 cm; Wt 66.4 kg
[~2019-12-23 06:07] MED LIST changes: +TAMIFLU 75MG75 MG PO
[2019-12-23 06:11] VITALS: BP 131/68; PULSE 92; TEMP 98.2
[2019-12-23] MEDS ORDERED: BUSPIRONE HCL7.5 MG PO (06:14)
[2019-12-23] MEDS ORDERED: ATIVAN 1MG T1 MG/TAB PO (06:14)
== END 2019-12-23 07:01 | disposition home or self-care (01) ==
LOC: COL.ER 06:07
DX: T63.481A Toxic effect of venom of other arthropod, accidental (unintentional), initial encounter (principal); Z90.49 Acquired absence of other specified parts of digestive tract

== ENCOUNTER 2020-01-09 20:23 | Emergency (ER) | payer OTHER ==
[~2020-01-09] VITALS: Ht 165.1 cm; Wt 111.8 kg
[~2020-01-09 20:23] MED LIST changes: +ATIVAN 1MG T1 MG/TAB PO; +BUSPIRONE HCL7.5 MG PO
[2020-01-09 20:27] VITALS: BP 111/78; TEMP 98.4
[2020-01-09] MEDS ORDERED: NAPROSYN500 MG PO (22:28)
[2020-01-09 22:58] VITALS: PULSE 96
== END 2020-01-09 22:58 | disposition home or self-care (01) ==
LOC: COL.ER 20:23
DX: M25.562 Pain in left knee (principal); F41.9 Anxiety disorder, unspecified; G47.00 Insomnia, unspecified; W19.XXXA Unspecified fall, initial encounter; X50.9XXA Other and unspecified overexertion or strenuous movements or postures, initial encounter
CPT/HCPCS: J1885

== ENCOUNTER 2020-03-21 14:51 | Outpatient (RCR) | payer OTHER ==
[~2020-03-21 14:51] MED LIST changes: +NAPROSYN500 MG PO
[2020-03-26] MEDS ORDERED: BUSPAR 30MG30 MG/TAB PO (06:37)
[2020-03-26] MEDS ORDERED: MOBIC15 MG PO ×2 (06:39→09:45)
[2020-03-26] MEDS ORDERED: KENALOG 60 ML60 M1 TP (06:41)
[2020-03-26] MEDS ORDERED: PERCOCET 325 MG1 TA2 PO (09:45)
[2020-03-26] MEDS ORDERED: ZOFRAN 4MG T4 MG/TAB PO (09:46)
[2020-03-26] MEDS ORDERED: COLACE 100100 MG/CAP PO (09:46)
== END 2020-06-19 | disposition home or self-care (01) ==
LOC: MKS.ESL.PT
DX: M75.82 Other shoulder lesions, left shoulder (principal); Z96.612 Presence of left artificial shoulder joint

== ENCOUNTER 2020-03-26 05:44 | Day surgery (SDC) | payer OTHER ==
[~2020-03-26] VITALS: Ht 162.6 cm; Wt 109.7 kg
[2020-03-26 06:23] VITALS: BP 128/81; PULSE 95; TEMP 98.1
[2020-03-26] MEDS ORDERED: BUSPAR 30MG30 MG/TAB PO (06:37)
[2020-03-26] MEDS ORDERED: MOBIC15 MG PO ×2 (06:39→09:45)
[2020-03-26] MEDS ORDERED: KENALOG 60 ML60 M1 TP (06:41)
--- NOTE | 2020-03-26 06:41 | NUR ---
TO RM AT 0547- CALL LIGHT IN REACH AT BEDSIDE.
[2020-03-26 08:40] VITALS: BP 125/82; PULSE 86; TEMP 97
--- NOTE | 2020-03-26 08:40 | NUR ---
Patient arrives back to [facility] [place] drowsy, reports right shoulder discomfort, denies nausea. Patient monitor applied, vitals stable. Patient has 4 dressings on right shoulder, all are clean/dry/intact. Patient's friend at bedside. Patient given toast and juice.
--- NOTE | 2020-03-26 08:45 | NUR ---
Patient can move her fingers in her left hand, and does have sensation, capillary refill is less than 2 seconds. Patient reports that she did receive a nerve block prior to surgery, but doesn't think it worked.
[2020-03-26 08:52] VITALS: TEMP 97
[2020-03-26 09:00] VITALS: BP 119/86; PULSE 87
[2020-03-26 09:15] VITALS: BP 118/70; PULSE 85
--- NOTE | 2020-03-26 09:25 | NUR ---
Patient tolerated toast and juice without any nausea. Reports that right shoulder still discomforting. Dressing clean/dry/intact. Ice pack in place. Patient given PRN pain medication.
[2020-03-26 09:45] VITALS: BP 102/60; PULSE 82
[2020-03-26] MEDS ORDERED: PERCOCET 325 MG1 TA2 PO (09:45)
[2020-03-26] MEDS ORDERED: ZOFRAN 4MG T4 MG/TAB PO (09:46)
[2020-03-26] MEDS ORDERED: COLACE 100100 MG/CAP PO (09:46)
--- NOTE | 2020-03-26 10:00 | NUR ---
Patient reports that her shoulder discomfort is better/gone. Patient denies nausea. Vitals stable. Patient states she is ready to go home.
--- NOTE | 2020-03-26 10:10 | NUR ---
DEBRA Stevenson contacted at this time to clarify dismissal instructions stating patient needs to take ASA 325mg BID. Graham states that patient does not need to do that, just take the Mobic. Patient educated.
--- NOTE | 2020-03-26 10:15 | NUR ---
Dismissal instructions gone over with patient and patient's spouse. Both verbalize understanding and all questions answered.
--- NOTE | 2020-03-26 10:25 | NUR ---
Patient discharged to private vehicle at patient enterance via wheelchair. Patient's spouse is driving. Patient and spouse leave thanking staff for services.
== END 2020-03-26 10:25 | disposition home or self-care (01) ==
LOC: SDCO 05:44
DX: S43.432A Superior glenoid labrum lesion of left shoulder, initial encounter (principal); F32.9 Major depressive disorder, single episode, unspecified; F41.9 Anxiety disorder, unspecified; E66.01 Morbid (severe) obesity due to excess calories; G40.909 Epilepsy, unspecified, not intractable, without status epilepticus; Z53.33 Arthroscopic surgical procedure converted to open procedure; Z79.899 Other long term (current) drug therapy; Z20.828 Contact with and (suspected) exposure to other viral communicable diseases; Z68.41 Body mass index [BMI] 40.0-44.9, adult; Z90.49 Acquired absence of other specified parts of digestive tract; Z87.891 Personal history of nicotine dependence; Z88.8 Allergy status to other drugs, medicaments and biological substances
CPT/HCPCS: A4619; C1713; J0171; J0690; J1100; J1170; J1885; J2250; J2405; J2704; J3010; J7120

== ENCOUNTER 2020-05-04 15:00 | Outpatient (RCR) | payer OTHER ==
[~2020-05-04 15:00] MED LIST changes: +BUSPAR 30MG30 MG/TAB PO; +COLACE 100100 MG/CAP PO; +KENALOG 60 ML60 M1 TP; +MOBIC15 MG PO
== END 2020-06-28 | disposition home or self-care (01) ==
LOC: MKS.ESL.PT
DX: M75.22 Bicipital tendinitis, left shoulder (principal); Z98.890 Other specified postprocedural states

== ENCOUNTER → 2021-02-07 | Outpatient (REF) | LOC: COL.EMP 05:10 | DX: Z20.822 Contact with and (suspected) exposure to COVID-19 (principal) ==

== ENCOUNTER 2021-05-23 04:49 | Emergency (ER) | payer OTHER ==
[~2021-05-23] VITALS: Ht 165.1 cm; Wt 112.7 kg
[2021-05-23 04:56] VITALS: TEMP 97.2
[2021-05-23] MEDS ORDERED: FLEXERIL 1010 MG/TAB PO (05:53)
[2021-05-23 05:57] VITALS: BP 138/89; PULSE 76
== END 2021-05-23 05:40 | disposition home or self-care (01) ==
LOC: COL.ER 04:49
DX: S90.412A Abrasion, left great toe, initial encounter (principal); Z23 Encounter for immunization; W01.198A Fall on same level from slipping, tripping and stumbling with subsequent striking against other object, initial encounter; Y92.009 Unspecified place in unspecified non-institutional (private) residence as the place of occurrence of the external cause

== ENCOUNTER 2021-07-01 07:18 | Emergency (ER) | payer OTHER ==
[~2021-07-01] VITALS: Ht 162.6 cm; Wt 104.5 kg
[2021-07-01 07:26] VITALS: TEMP 98.1
[2021-07-01 07:52] LABS: BASO % 0.6 % (0.0-2.0); EOS # 0.1 K/mm3 (0.0-0.7); EOS % 0.9 % (0.0-4.0); GRAN # 4.3 K/mm3 (1.4-6.5); GRAN % 65.3 % (42.2-75.2); HEMATOCRIT 37.2 % (37.0-47.0); HEMOGLOBIN 13.1 g/dl (12.5-16.0); LYMPH # 1.7 K/mm3 (1.2-3.4); LYMPH % 26.4 % (20.0-51.0); MEAN CELL VOLUME 89 fl (80.0-100.0); MEAN CORPUSCULAR HEMOGLOBIN 31 pg (27-31); MEAN CORPUSCULAR HGB CONC 35 g/dl (33.0-37.0); MEAN PLATELET VOLUME 8.5 fl (7.4-10.4); MONO # 0.4 K/mm3 (0.1-0.6); MONO % 6.3 % (1.7-9.3); PLATELET COUNT 397 K/mm3 (130-400); REDCELL DISTRIBUTION WIDTH-CV 12.8 % (11.5-14.5)
[2021-07-01 08:18] LABS: ALANINE AMINOTRANSFERASE 21 U/L (0-55); ALBUMIN 3.8 gm/dL (3.5-5.0); ALKALINE PHOSPHATASE 91 U/L (40-150); ANION GAP 9 mmol/L (7-16); AST,SGOT 12 U/L (5-34); BILIRUBIN,TOTAL 0.5 mg/dL (0.2-1.2); BLOOD UREA NITROGEN 10 mg/dL (7-19); CALCIUM 8.7 mg/dL (8.4-10.2); CARBON DIOXIDE 20 mmol/L (22-29); CHLORIDE 104 mmol/L (98-107); CREATININE, serum 0.77 mg/dL (0.57-1.11); GLUCOSE 122 mg/dL (70-99); POTASSIUM 4.1 mmol/L (3.5-4.5); SODIUM 133 mmol/L (136-145); TOTAL PROTEIN 7.9 gm/dL (6.2-8.1)
[2021-07-01 08:27] LABS: TROPONIN-I < 0.010 ng/mL (0.00-0.033)
[2021-07-01] MEDS ORDERED: PERCOCET 325 MG1 TA2 PO (09:18)
[2021-07-01] MEDS ORDERED: PREDNISONE10 MG PO (09:18)
[2021-07-01 10:38] VITALS: BP 126/88; PULSE 96
== END 2021-07-01 10:15 | disposition home or self-care (01) ==
LOC: COL.ER 07:18
PROVIDERS: Family Medicine
DX: R07.89 Other chest pain (principal); R79.1 Abnormal coagulation profile; G89.29 Other chronic pain; M54.6 Pain in thoracic spine; M25.519 Pain in unspecified shoulder; Z79.891 Long term (current) use of opiate analgesic
CPT/HCPCS: J1885; J2270; J2405

== ENCOUNTER 2021-07-26 05:06 | Emergency (ER) | payer OTHER ==
[~2021-07-26] VITALS: Ht 162.6 cm; Wt 110.5 kg
[~2021-07-26 05:06] MED LIST changes: +PREDNISONE10 MG PO
[2021-07-26 05:42] LABS: BASO % 0.4 % (0.0-2.0); EOS % 0.7 % (0.0-4.0); GRAN # 4.4 K/mm3 (1.4-6.5); GRAN % 80.4 % (42.2-75.2); HEMOGLOBIN 12.3 g/dl (12.5-16.0); LYMPH # 0.7 K/mm3 (1.2-3.4); LYMPH % 12.3 % (20.0-51.0); MEAN CELL VOLUME 89 fl (80.0-100.0); MEAN CORPUSCULAR HEMOGLOBIN 31 pg (27-31); MEAN CORPUSCULAR HGB CONC 35 g/dl (33.0-37.0); MEAN PLATELET VOLUME 8.6 fl (7.4-10.4); MONO # 0.3 K/mm3 (0.1-0.6); PLATELET COUNT 374 K/mm3 (130-400); RED BLOOD COUNT 3.93 M/mm3 (4.10-5.30); REDCELL DISTRIBUTION WIDTH-CV 12.5 % (11.5-14.5)
[2021-07-26 06:00] LABS: ALANINE AMINOTRANSFERASE 22 U/L (0-55); ALBUMIN 3.8 gm/dL (3.5-5.0); ALKALINE PHOSPHATASE 90 U/L (40-150); ANION GAP 10 mmol/L (7-16); AST,SGOT 17 U/L (5-34); BILIRUBIN,TOTAL 0.6 mg/dL (0.2-1.2); BLOOD UREA NITROGEN 7 mg/dL (7-19); CALCIUM 8.8 mg/dL (8.4-10.2); CARBON DIOXIDE 20 mmol/L (22-29); CHLORIDE 105 mmol/L (98-107); CREATININE, serum 0.78 mg/dL (0.57-1.11); GLUCOSE 122 mg/dL (70-99); POTASSIUM 3.7 mmol/L (3.5-4.5); SODIUM 135 mmol/L (136-145); TOTAL PROTEIN 7.8 gm/dL (6.2-8.1)
[2021-07-26 06:06] LABS: TROPONIN-I < 0.010 ng/mL (0.00-0.033)
[2021-07-26 07:47] VITALS: BP 130/91; PULSE 107; TEMP 99.8
== END 2021-07-26 07:45 | disposition home or self-care (01) ==
LOC: COL.ER 05:06
PROVIDERS: Emergency Medicine
DX: U07.1 COVID-19 (principal)
CPT/HCPCS: J1885; J7030

== ENCOUNTER 2022-03-26 04:27 | Emergency (ER) | payer OTHER ==
[~2022-03-26] VITALS: Ht 165.1 cm; Wt 115.0 kg
[2022-03-26 04:33] VITALS: TEMP 98
[2022-03-26 05:12] LABS: BASO % 0.6 % (0.0-2.0); EOS # 0.1 K/mm3 (0.0-0.7); EOS % 1.1 % (0.0-4.0); GRAN # 3.4 K/mm3 (1.4-6.5); GRAN % 53.7 % (42.2-75.2); HEMOGLOBIN 12.3 g/dl (12.5-16.0); LYMPH # 2.4 K/mm3 (1.2-3.4); LYMPH % 37.4 % (20.0-51.0); MEAN CELL VOLUME 90 fl (80.0-100.0); MEAN CORPUSCULAR HEMOGLOBIN 31 pg (27-31); MEAN CORPUSCULAR HGB CONC 35 g/dl (33.0-37.0); MEAN PLATELET VOLUME 8.6 fl (7.4-10.4); MONO # 0.4 K/mm3 (0.1-0.6); MONO % 6.7 % (1.7-9.3); PLATELET COUNT 374 K/mm3 (130-400); RED BLOOD COUNT 3.94 M/mm3 (4.10-5.30); REDCELL DISTRIBUTION WIDTH-CV 12.8 % (11.5-14.5)
[2022-03-26 05:13] LABS: HEMATOCRIT 35.5 % (37.0-47.0)
[2022-03-26 05:27] LABS: CALCIUM 8.8 mg/dL (8.4-10.2); CREATININE, serum 0.74 mg/dL (0.57-1.11); POTASSIUM 4.1 mmol/L (3.5-4.5)
[2022-03-26 05:35] LABS: TROPONIN-I 0.025 ng/mL (0.00-0.033)
[2022-03-26 06:40] VITALS: BP 125/93; PULSE 97
== END 2022-03-26 06:40 | disposition home or self-care (01) ==
LOC: COL.ER 04:27
PROVIDERS: Emergency Medicine
DX: R06.00 Dyspnea, unspecified (principal); Z20.822 Contact with and (suspected) exposure to COVID-19